=== PATIENT | female | born 1935 | race Caucasian/White ===

== ENCOUNTER 2018-07-06 16:02 | Emergency (ER) | payer MEDICARE ==
[~2018-07-06] VITALS: Ht 172.7 cm; Wt 74.8 kg
[2018-07-06 16:54] LABS: BASOPHILS ABSOLUTE AUTO 0.04 K/mm3 (0.00-0.23); BASOPHILS PERCENT AUTO 1 % (0-2); EOSINOPHILS ABSOLUTE AUTO 0.14 K/mm3 (0.00-0.68); EOSINOPHILS PERCENT AUTO 2 % (0-6); Hematocrit 43.6 % (33.0-51.0); Hemoglobin 13.5 g/dL (11.5-16.0); IMMATURE GRAN ABSOLUTE AUTO 0.02 K/mm3 (0.00-0.10); IMMATURE GRAN PERCENT AUTO 0 % (0-1); LYMPHOCYTES ABSOLUTE AUTO 2.02 K/mm3 (0.84-5.20); LYMPHOCYTES PERCENT AUTO 24 % (21-46); MONOCYTES ABSOLUTE AUTO 0.64 K/mm3 (0.16-1.47); MONOCYTES PERCENT AUTO 8 % (4-13); Mean Corpuscular HGB 25.3 pg (26.0-34.0); Mean Corpuscular Volume 82 fL (80-100); Mean Platelet Volume 9.4 fL (9.1-12.4); NEUTROPHILS ABSOLUTE AUTO 5.44 K/mm3 (1.96-9.15); NEUTROPHILS PERCENT AUTO 66 % (41-73); Platelet Count 375 K/mm3 (150-400); RDW Standard Deviation 41.3 fL (35.1-46.3); Red Blood Cell Count 5.33 M/mm3 (3.80-5.20)
[2018-07-06 17:19] LABS: Alanine Aminotransfer (ALT/SGP 18 U/L (12-78); Albumin, Blood 3.4 g/dL (3.4-5.0); Albumin/Globulin Ratio 0.7 (0.8-1.8); Alk Phos 107 U/L (50-136); Anion Gap 8 mmol/L (6-16); Aspartate Aminotrans (AST/SGOT 13 U/L (12-37); Bilirubin, Total 0.2 mg/dL (0.1-1.0); Blood Urea Nitrogen 17 mg/dL (8-24); Bun/Creatinine Ratio 31.1 (12.0-20.0); CO2, Blood 27 mmol/L (21-32); Calcium, Blood 9.1 mg/dL (8.5-10.1); Chloride, Blood 101 mmol/L (98-108); Creatinine, Blood 0.55 mg/dL (0.40-1.00); Globulin, Blood 4.7 g/dL (2.2-4.0); Glomerular Filtration Rate >60 (60-); Glucose, Blood 263 mg/dL (70-99); Potassium, Blood 4.1 mmol/L (3.5-5.5); Sodium, Blood 136 mmol/L (136-145); Total Protein, Blood 8.1 g/dL (6.4-8.2)
[2018-07-06] MEDS ORDERED: METF500C PO (18:19)
[2018-07-06] MEDS ORDERED: Protonix40 MG PO (20:20)
== END 2018-07-06 20:26 | disposition home or self-care (01) ==
LOC: ER 16:02
PROVIDERS: Emergency Medicine
DX: R10.13 Epigastric pain (principal); R10.12 Left upper quadrant pain; E11.65 Type 2 diabetes mellitus with hyperglycemia; Z79.84 Long term (current) use of oral hypoglycemic drugs
CPT/HCPCS: 36415; 80053; 83690; 85025; 99284

== ENCOUNTER 2023-08-15 15:13 | Emergency (ER) | payer MEDICARE ==
[~2023-08-15] VITALS: Ht 172.7 cm; Wt 72.6 kg
[~2023-08-15 15:13] MED LIST: GLIP5; METF500C PO; Protonix40 MG PO
[2023-08-15 16:03] LABS: BASOPHILS ABSOLUTE AUTO 0.05 K/mm3 (0.00-0.23); BASOPHILS PERCENT AUTO 1 % (0-2); EOSINOPHILS PERCENT AUTO 5 % (0-6); Hematocrit 40.8 % (33.0-51.0); Hemoglobin 12.4 g/dL (11.5-16.0); IMMATURE GRAN ABSOLUTE AUTO 0.02 K/mm3 (0.00-0.10); IMMATURE GRAN PERCENT AUTO 0 % (0-1); LYMPHOCYTES ABSOLUTE AUTO 2.09 K/mm3 (0.84-5.20); LYMPHOCYTES PERCENT AUTO 26 % (21-46); MONOCYTES ABSOLUTE AUTO 0.61 K/mm3 (0.16-1.47); MONOCYTES PERCENT AUTO 8 % (4-13); Mean Corpuscular HGB 23.8 pg (26.0-34.0); Mean Corpuscular HGB Conc 30.4 g/dL (31.5-36.5); Mean Corpuscular Volume 78 fL (80-100); Mean Platelet Volume 8.9 fL (9.1-12.4); NEUTROPHILS PERCENT AUTO 61 % (41-73); Platelet Count 441 K/mm3 (150-400); RDW Coefficient Variation 14.3 % (11.7-14.2); RDW Standard Deviation 40.8 fL (35.1-46.3); Red Blood Cell Count 5.21 M/mm3 (3.80-5.20); White Blood Cell Count 8.17 K/mm3 (4.00-11.30)
[2023-08-15 16:24] LABS: Albumin, Blood 3.7 g/dL (3.4-5.0); Albumin/Globulin Ratio 0.8 (0.8-1.8); Bilirubin, Total 0.4 mg/dL (0.1-1.0); Bun/Creatinine Ratio 20.5 (12.0-20.0); Calcium, Blood 9.9 mg/dL (8.5-10.1); Creatinine, Blood 0.54 mg/dL (0.40-1.00); Globulin, Blood 4.9 g/dL (2.2-4.0); Potassium, Blood 3.9 mmol/L (3.5-5.5); Total Protein, Blood 8.6 g/dL (6.4-8.2)
[2023-08-15] MEDS ORDERED: NS 1,000 ML IV SCH (20:40)
[2023-08-15] MEDS ORDERED: POTA10T PO (22:23)
[2023-08-15] MEDS ORDERED: FURO20 PO (22:23)
[2023-08-15 22:30] VITALS: BP 174/82
== END 2023-08-15 22:40 | disposition home or self-care (01) ==
LOC: ER 15:13
PROVIDERS: Physician Assistant
DX: E11.65 Type 2 diabetes mellitus with hyperglycemia (principal); D25.9 Leiomyoma of uterus, unspecified; M80.08XA Age-related osteoporosis with current pathological fracture, vertebra(e), initial encounter for fracture; R10.84 Generalized abdominal pain; Z87.19 Personal history of other diseases of the digestive system; Z79.84 Long term (current) use of oral hypoglycemic drugs; Z79.899 Other long term (current) drug therapy
CPT/HCPCS: 74177; 80053; 82947; 83690; 83880; 85025; 93005; 93010; 96360-59; 99284-25; J7030; Q9967